=== PATIENT | female | born 1955 | race Hispanic/Latino ===

== ENCOUNTER → 2018-11-19 | Outpatient (CLI) | payer BC ==
[~2018-11-19] MED LIST: ATOR40TA71 PO; CYCL10 PO; DOCU-116 PO; ENAL5TAB PO; FLUO-126 PO; GLYB1TAB3 PO; IBUP-2071 PO; TYL3 PO
[2018-11-19 09:50] LABS: CREATININE 0.9 mg/dL (0.5-1.5)
== END | disposition home or self-care (01) ==
LOC: LAB 08:48
PROVIDERS: ATTEND Otolaryngology Plastic Surgery within the Head & Neck
DX: H90.3 Sensorineural hearing loss, bilateral (principal)
CPT/HCPCS: 36415; 82565; 84520

== ENCOUNTER → 2018-11-24 | Outpatient (CLI) | payer BC ==
[~2018-11-24] MED LIST changes: +GADODIAMIDE 10 MMOL/20 ML VIAL IV ONE
== END | disposition home or self-care (01) ==
LOC: RAH 13:02
PROVIDERS: ATTEND Otolaryngology Plastic Surgery within the Head & Neck
DX: H70.892 Other mastoiditis and related conditions, left ear (principal); R90.82 White matter disease, unspecified; H90.3 Sensorineural hearing loss, bilateral
CPT/HCPCS: 70553 ×2; A9579